=== PATIENT | male | born 1955 | race Caucasian/White ===

== ENCOUNTER 2019-09-08 13:45 | Inpatient (IN) | payer OTHER ==
[2019-09-05 22:00] VITALS: BP 128/84; PULSE 72; TEMP 98
[2019-09-08] VITALS (8 sets, daily range): BP systolic 124–135; BP diastolic 56–88; PULSE 72–96; TEMP 97.8–98
[~2019-09-08] VITALS: Ht 167.6 cm; Wt 75.0 kg
[~2019-09-08 13:45] MED LIST: ALTACE 5MG5 MG PO; COZAAR100 MG PO; ELAVIL100 MG PO; LIPITOR 10MG10 MG PO; LORTAB 5/500 501 TAB PO; NORCO 325 MG-7.1 TAB PO
[2019-09-08] MEDS ORDERED: ULTRAM 50MG TAB50 MG PO (16:13)
--- NOTE | 2019-09-08 20:45 | NUR ---
Recieved to room 356 via bed from PACU. Post op vitals initiated. Oriented to room/policy. Admission assessment complete. VS stable. A&Ox3-c/o severe pain to right ankle-rating it 7/10-described as constant throbbing. PO pain meds initiated. Denies nausea/shortness of breath. IV to right hand-NS@75mls/hr. Ice pack applied-elevated on pillows. CMS intact. Call light in reach. Will monitor.
--- NOTE | 2019-09-08 21:08 | NUR ---
Amanda two tabs given per dr order for pain rated 5/10 on pain scale to right ankle described as constant throbbing.
--- NOTE | 2019-09-08 21:45 | NUR ---
Morphine 2mg given IV per dr order for pain rated 7/10 descrbied as constant throbbing to right ankle.
[2019-09-08 23:03] LABS: MEAN CELL VOLUME 87 fl (80.0-100.0); MEAN CORPUSCULAR HEMOGLOBIN 30 pg (27.0-31.0); MEAN CORPUSCULAR HGB CONC 34 g/dl (33.0-37.0); MEAN PLATELET VOLUME 9.4 fl (7.4-10.4); PLATELET COUNT 215 K/mm3 (130-400); RED BLOOD COUNT 4.03 M/mm3 (4.20-5.60); REDCELL DISTRIBUTION WIDTH-CV 13.4 % (11.5-14.5)
[2019-09-08 23:08] LABS: INR 1.1 (0.8-3.0); PROTHROMBIN TIME 12.5 SECONDS (9.7-12.8)
[2019-09-08 23:11] LABS: HEMATOCRIT 35.2 % (42.0-52.0)
[2019-09-08 23:12] LABS: ALBUMIN 3.9 gm/dL (3.5-5.0); BILIRUBIN,TOTAL 0.4 mg/dL (0.0-1.0); CALCIUM 8.6 mg/dL (8.4-10.2); CREATININE, serum 1.02 (0.66-1.25); POTASSIUM 3.6 mmol/L (3.4-5.0); TOTAL PROTEIN 6.9 gm/dL (6.4-8.2)
[2019-09-08 23:33] LABS: LYMPHOCYTE 4 % (20.0-51.0); NEUTROPHILS 96 % (42.0-75.2); PLATELET ESTIMATE NORMAL (NORMAL)
[2019-09-09] VITALS (8 sets, daily range): BP systolic 92–117; BP diastolic 49–66; PULSE 60–90; TEMP 98–99.1
--- NOTE | 2019-09-09 00:24 | NUR ---
Morphine 2mg given IV per dr order for pain rated 10/10 on pain scale described as sharp throbbing.
--- NOTE | 2019-09-09 05:30 | NUR ---
Rested more comfortably later this shift. Received PO pain meds/IV morphine for breakthru. Did have some difficulty getting pain under control when arrived from PACU. SCD to left lower extremity. Ice has been applied to right lower extremity. IV fluids continue to infuse-NS@75ml/hr to right hand IV. Call light in reach. Will monitor.
--- NOTE | 2019-09-09 07:37 | NUR ---
Pt assessment complete. Pt is sitting up in bed upon entry eating breakfast, he is A/O x4. His breathing is shallow with periods of holding his breath d/t pain. Pt encouraged to deep breathe and cough. Instructed to notify staff if pain has not improved. RLE elevated on pillows. IVF infusing without issues. Pt denies any N/V. Reports N/T to RLE. No needs at this time. Call light within reach.
--- NOTE | 2019-09-09 09:23 | NUR ---
Pt reports pain increasing after dose of Halsey, PRN dose of Morphine administered along with Benadryl d/t itching.
--- NOTE | 2019-09-09 09:45 | NUR ---
VISHAL met with the patient to complete initial intake. The patient lives in [place] with his , Hortencia. The patient states he has an old pair of crutches but does want other equipment to support him with his ankle fracture. The patient's PCP is Dr. Brennan and the patient receives medications from [facility]. The patient does not have advanced directives in the EMR but believes they are complete and designate his , Hortencia. The patient plans to return home at discharge with Hortencia providing transportation. VISHAL contacted Hortencia ([phone]) to introduce oneself and to discuss the discharge plan. All questions were answered. Will continue to monitor for needs.
--- NOTE | 2019-09-09 12:10 | NUR ---
First visit from the radio script writer. No needs right now.
--- NOTE | 2019-09-09 14:05 | NUR ---
The patient is going to have DME equipment going home. VISHAL met with the patient to discuss options. The patient states he would like to go to [facility] because he gets his medications from there. VISHAL contacted Tracey at [facility] to discuss the patient's needs. She will be able to accomodate him. Will continue to monitor.
--- NOTE | 2019-09-09 19:07 | NUR ---
Pt continued to report pain to RLE. Pt would wait until pain was severe enough to require IV dose of pain medications. RLE remains elevated. Report given to MC Rao.
--- NOTE | 2019-09-09 19:11 | NUR ---
PATIENT RESTING IN BED DURING CHANGE OF SHIFT REPORT FROM [facility]IFT [facility]. PATIENT WITH NO NEEDS REPORTED, OBSERVED RLE ELEVATED, IVF INFUSING WITHOUT PROBLEMS.
--- NOTE | 2019-09-09 21:20 | NUR ---
PATIENT REQUESTED AND GIVEN MS AND ROXICODONE FOR LEVEL 8/10 RIGHT ANKLE PAIN. SEE eMAR FOR MEDS GIVEN. ENCOURAGED PATIENT TO WIGGLE TOES TO RIGHT FOOT. DENIES ANY OTHER C/O WITH C/O OF PAIN CURRENTLY. REPORTS LAST BM WAS ON WEDNESDAY 09/06. RIGHT FOOT ELEVATED ON x2 PILLOWS, APPLIED ICE TO BOTH SIDES OF RIGHT ANKLE.
--- NOTE | 2019-09-10 | NUR ---
PATIENT RESTING WITH EYES CLOSED, DOES NOT AWAKEN WHEN DOOR TO ROOM OPENED BY STAFF, BREATHING OBSERVED NONLABORED AND EVEN. IVF INFUSING WITHOUT PROBLEMS.
[2019-09-10 03:56] VITALS: BP 110/67; PULSE 58; TEMP 97.8
--- NOTE | 2019-09-10 08:00 | NUR ---
PATIENT RESTING IN BED DURING CHANGE OF SHIFT REPORT GIVEN TO DAY SHIFT NURSES, KALANI. IVF INFUSING WITHOUT PROBLEMS. RLE ELEVATED ON PILLOWS.
--- NOTE | 2019-09-10 08:11 | NUR ---
Patient reports sleeping well last night, but still exhausted today. Patient attended PT this morning. He is NWB to the right leg. Patient reporting pain in the ankle currently has ice on both sides of ankle cast. Patient resting in bed, call light in reach and right leg elevated on pillows. Will continue to monitor.
[2019-09-10 08:19] VITALS: BP 125/68; PULSE 77; TEMP 98.4
[2019-09-10 12:13] VITALS: BP 121/63; PULSE 73; TEMP 98
[2019-09-10] MEDS ORDERED: NORCO 325 MG-7.1 TAB PO (12:20)
[2019-09-10] MEDS ORDERED: ASPI325T6 PO (12:21)
--- NOTE | 2019-09-10 15:03 | NUR ---
DISCHARGE INSTRUCTIONS PROVIDED TO PT. QUESTIONS ANSWERED. PT TAKEN TO ED ENTRANCE BY WHEEL CHAIR.
--- NOTE | 2019-09-10 16:28 | NUR ---
Plate Worker Helper faxed signed order for crutches to [facility]. VISHAL contacted patient's , Hortencia to provide update. Hortencia requested OT note, which recommends shower chair to provide for workmans comp. VISHAL printed OT note and included it with patient's discharge packet. No additional needs at this time.
== END 2019-09-10 15:04 | disposition home or self-care (01) | DRG 494 ==
LOC: COL.ER 13:45 → MEDICAL 15:27
PROVIDERS: Physician Assistant; ADMIT Orthopaedic Surgery
PROC: 0QSG04Z Reposition Right Tibia with Internal Fixation Device, Open Approach (ICD-10-PCS; 2019-09-08)
PROC: 0QSJ04Z Reposition Right Fibula with Internal Fixation Device, Open Approach (ICD-10-PCS; principal; 2019-09-08 16:15)
DX: S82.841B Displaced bimalleolar fracture of right lower leg, initial encounter for open fracture type I or II (principal); W01.0XXA Fall on same level from slipping, tripping and stumbling without subsequent striking against object, initial encounter; Y93.89 Activity, other specified; G89.29 Other chronic pain; M54.9 Dorsalgia, unspecified; M19.90 Unspecified osteoarthritis, unspecified site; I10 Essential (primary) hypertension
CPT/HCPCS: C1713; J0690; J1100; J1170; J1650; J2250; J2270; J2405; J2704; J3010; J7030; J7120; Q4045